=== PATIENT | male | born 1995 | race Caucasian/White ===

== ENCOUNTER 2017-02-11 14:47 | Emergency (ER) | payer OTHER ==
[2017-02-11] MEDS ORDERED: Ketorolac INJ* 60 MG/2 ML VIAL IM ONE (17:46)
[2017-02-11] MEDS ORDERED: Penicillin VK TAB* 250 MG PO ONE (17:46)
--- NOTE | 2017-02-11 17:50 | ED ---
Throat Pain/Nasal Congestion - HPI Summary HPI Summary: 21M presents with left upper wisdom tooth pain for a week. Has been taking ibuprofen intermittent. He denies any pain with eye movement, swelling around eye, fever, or chest pain. He has a dentist and can't get an appointment for 2 weeks. - History of Current Complaint Chief Complaint: EDDentalPain Time Seen by Provider: 02/11/17 17:34 - Allergies/Home Medications Allergies/Adverse Reactions: Allergies Allergy/AdvReac Type Severity Reaction Status Date / Time No Known Allergies Allergy Verified 02/11/17 14:59 PMH/Surg Hx/FS Hx/Imm Hx Endocrine/Hematology History: Denies: Hx Anticoagulant Therapy Cardiovascular History: Denies: Hx Hypertension Infectious Disease History: No Infectious Disease History: Denies: Traveled Outside the [place] in Last 30 Days - Family History Known Family History: Negative: Cardiac Disease - Social History Alcohol Use: None Substance Use Type: Reports: None Smoking Status (MU): Never Smoked Tobacco Review of Systems Negative: Fever Positive: Dental Pain Negative: Chest Pain Negative: Shortness Of Breath All Other Systems Reviewed And Are Negative: Yes Physical Exam Triage Information Reviewed: Yes Vital Signs On Initial Exam: Initial Vitals Temp Pulse Resp BP Pulse Ox 98.0 F 87 17 140/63 98 02/11/17 14:57 02/11/17 14:57 02/11/17 14:57 02/11/17 14:57 02/11/17 14:57 Vital Signs Reviewed: Yes Appearance: Positive: Well-Appearing Skin: Positive: Warm, Dry Head/Face: Positive: Normal Head/Face Inspection Eyes: Positive: Normal, Conjunctiva Clear ENT: Positive: Normal ENT inspection, Pharynx normal, TMs normal Dental: Positive: Percussion Tenderness @ - 16 Respiratory/Lung Sounds: Positive: Clear to Auscultation, Breath Sounds Present Cardiovascular: Positive: Normal, RRR Diagnostics - Vital Signs Vital Signs Temp Pulse Resp BP Pulse Ox 02/11/17 15:54 98.3 F 83 15 112/66 95 02/11/17 14:57 98.0 F 87 17 140/63 98 - Laboratory Lab Statement: Any lab studies that have been ordered have been reviewed, and results considered in the medical decision making process. EENT Course/Dx - Course Course Of Treatment: 21M has dental pain in tooth 16 for a week. has been taking ibuprofen intermittent and states does not have any more. on exam no abscess noted. will treat with PCN and ibuprofen. patient understands and agrees with plan - Differential Diagnoses Differential Diagnoses: Dental Abscess, Dental Caries, Fractured Tooth - Diagnoses Provider Diagnoses: Pain, dental Discharge - Discharge Plan Condition: Good Disposition: HOME Prescriptions: Ibuprofen TAB* [Motrin TAB* 800 MG] 800 mg PO Q6H #20 tab Penicillin VK TAB* [Penicillin VK 250 mg Tab*] 500 mg PO QID #27 tab Patient Education Materials: Toothache (ED) Referrals: No Primary Care Phys,NOPCP [Primary Care Provider] - Additional Instructions: 4 times a day for 7 days, first dose given in ED Use ibuprofen every 6 hours Avoid hard, crunchy food until seen by dentist Follow up with dentist as soon as possible Return to ED if develop fever, shortness of breath, pain with eye movement or swelling around eye Images - Images Dental: 1 - pain
[2017-02-11 18:08] VITALS: BP 117/68
== END 2017-02-11 18:07 | disposition home or self-care (01) ==
LOC: ED 14:47
DX: K08.89 Other specified disorders of teeth and supporting structures (principal)
CPT/HCPCS: 96372; 99282; A9270-GY; J1885